=== PATIENT | female | born 1970 | race Two or more races ===

== ENCOUNTER → 2024-06-25 | Outpatient (CLI) | payer MEDICAID, SELFPAY ==
--- NOTE | 2024-06-25 14:30 | XR_ITS ---
Examination: Screening digital mammography, bilateral Computer aided detection 3-D breast Tomosynthesis, bilateral Date and time of exam: June 25, 2024 1436 hrs. Compared to mammograms dating to January 19, 2017 Indication: Screening Technique: Nonmagnified MLO, CC views of the breasts to been obtained, reconstructed from 3-D Tomosynthesis images. R2 computer aided detection program utilized for evaluation of suspicious masses and/or abnormal calcifications. 3-D Tomosynthesis images obtained. Findings: The breasts are heterogeneously dense, which may obscure small masses Benign calcifications No interval suspicious masses Impression: BI-RADS category II: Benign Findings. Recommend 1 year follow-up mammogram.
== END | disposition home or self-care (01) ==
LOC: CDIM 14:19
PROVIDERS: Referring Provider Physician Assistant; Visit Provider Physician Assistant
DX: Z12.31 Encounter for screening mammogram for malignant neoplasm of breast (principal); R92.323 Mammographic fibroglandular density, bilateral breasts; R92.1 Mammographic calcification found on diagnostic imaging of breast
CPT/HCPCS: 77063; 77067

== ENCOUNTER → 2024-10-22 | Outpatient (CLI) | payer MEDICAID, SELFPAY ==
--- NOTE | 2024-10-22 12:45 | XR_ITS ---
Examination: Bilateral wrists 5 views TECHNIQUE: Bilateral AP, right and left oblique, right and left lateral wrist films 5 views Date and time: October 22, 2024 1257 hours INDICATIONS: Bilateral wrist pain chronic FINDINGS: Moderate osteopenia. No fracture or dislocation involving either wrist. 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
== END | disposition home or self-care (01) ==
DX: M25.532 Pain in left wrist (principal); M25.531 Pain in right wrist
CPT/HCPCS: 73110

== ENCOUNTER 2025-02-26 10:52 | Outpatient (RCR) | payer MEDICAID, SELFPAY ==
--- NOTE | 2025-02-26 11:19 | PT.OIERPT ---
PT OP Initial Eval Patient Information Outpatient Physical Therapy Treatment Date: 02/26/25 Visit Reasons: low back pain Medical Diagnosis: M54.50 M54.15 Treatment Dx #1: LBP Start of Care: 02/26/25 Date of Onset: 6 months ago Smoking Status Smoking Status: Never smoker Initial Assessment Subjective: Pt is 54 yr old albanian speaking female who reports LBP that radiates down the L LE occasionally. Increased pain with getting OOB some days. This doesn't limit ADL's or HH chores. PMH: HTN, DM Imaging: Xray results in chart Pt goal: not sure, to get rid of the pain Objective: Trunk ArOM: ? B SB 50% of normal with pain ? Extension: 30% with mild pain around L4-5, L5-S1 on L ? Flexion: 7 from floor with mild LBP ? B rotation: 60% with pain ? TTP: moderate paraspinals L5-S1 ? Neuro: L SLR: negative Assessment: ? Pt presents with trunk flexion sensitivity and overlying myofascial pain ? and TTP around L5-S1 consistent with ? lower lumbar disc bulge(s) with radiculopathy. Pt requires skilled therapy in order to decrease ? pain and improve sitting/standing tolerance and has fair rehab potential. Eval ?followed by HEP printout. [employer] and [employer] Goals ? 1. Ind with HEP ? 2. Improved sitting/standing tolerance to 30 minutes with <=3/10 LBP ? 3. Decreased lower paraspinal TTP from mod to min 4. Pt will get OOB with <=2/10 LBP x3 days Treatment Plan 1. Manual therapy ? 2. Therex ? 3. Modalities as indicated, moist heat, ice, TENS Frequency and Duration: 1-2x a week for 6 visits plus the evaluation Certification Dates: 02/26/25 to 05/27/25 Procedure Charges OP PT Eval Mod Complex 30 minutes: Yes
== END 2025-03-06 23:59 | disposition home or self-care (01) ==
LOC: CPTX 10:52
PROVIDERS: PCP Physician Assistant; Referring Provider Physician Assistant; Visit Provider Physician Assistant
DX: M54.15 Radiculopathy, thoracolumbar region (principal); I10 Essential (primary) hypertension; E11.9 Type 2 diabetes mellitus without complications
CPT/HCPCS: 97162